=== PATIENT | female | born 1930 | race Caucasian/White ===

== ENCOUNTER 2022-06-27 13:23 | Inpatient (IN) | payer MEDICARE ==
[2022-06-24 11:14] LABS: BASOPHILS # (AUTO) 0.1 X10'3 (0-0.2); BASOPHILS % (AUTO) 0.9 % (0-1); EOSINOPHILS # (AUTO) 0.1 X10'3 (0-0.9); EOSINOPHILS % (AUTO) 1.2 % (0-6); HEMATOCRIT 32.7 % (35.0-45.0); HEMOGLOBIN 9.9 g/dl (12.0-16.0); LYMPHOCYTES # (AUTO) 1.3 X10'3 (1.1-4.8); MEAN CORPUSCULAR HEMOGLOBIN 24.3 PG (27.0-31.0); MEAN CORPUSCULAR HGB CONC 30.5 g/dL (33.0-36.5); MEAN CORPUSCULAR VOLUME 79.7 FL (78-98); MEAN PLATELET VOLUME 7.1 FL (7.4-10.4); MONOCYTES # (AUTO) 0.7 X10'3 (0-0.9); MONOCYTES % (AUTO) 7.4 % (2-12); NEUTROPHILS % (AUTO) 76.5 % (42-75); PLATELET COUNT 353 X10'3 (140-440); WHITE BLOOD COUNT 9.2 X10'3 (4.5-11.0)
[2022-06-24 11:29] LABS: ANION GAP 15 (8-16); BLOOD UREA NITROGEN 26 MG/DL (7-18); BUN/CREATININE RATIO 20.8 (10.0-20.0); CHLORIDE 105 MMOL/L (99-107); CREATININE 1.25 MG/DL (0.40-0.90); GLUCOSE 95 MG/DL (70-104); SODIUM 141 MMOL/L (135-145); TOTAL CARBON DIOXIDE 21.5 MMOL/L (24-32); eGFR 40 ML/MIN
[2022-06-24 11:35] LABS: APTT 20 SECONDS (22-32)
[2022-06-27] VITALS (16 sets, daily range): BP systolic 58–158; BP diastolic 21–64
[~2022-06-27] VITALS: Ht 162.6 cm; Wt 71.4 kg
[~2022-06-27 13:23] MED LIST: LANTUS SQ
[2022-06-27] MEDS ORDERED: LORazepam 0.5 MG tablet PO PRN (13:50)
[2022-06-27] MEDS ORDERED: diphenhydrAMINE 25mg capsule PO PRN (13:50)
[2022-06-27] MEDS ORDERED: APIX5TAB3 PO (14:11)
[2022-06-27] MEDS ORDERED: EMPA10TA PO (14:11)
[2022-06-27] MEDS ORDERED: LISI20TA28 PO (14:11)
[2022-06-27] MEDS ORDERED: CLOP75TA34 PO (14:11)
[2022-06-27] MEDS ORDERED: FURO20TA4 PO (14:11)
[2022-06-27] MEDS ORDERED: ATOR-2 PO (14:11)
[2022-06-27] MEDS ORDERED: AMIO100T4 PO (14:11)
[2022-06-27] MEDS ORDERED: METF-438 PO (14:11)
[2022-06-27] MEDS ORDERED: INSU100I8 SQ (14:11)
[2022-06-27] MEDS ORDERED: LANTUS SQ (14:11)
[2022-06-27] MEDS: normal saline 1,000 ML IV SCH (14:50)
[2022-06-27] MEDS ORDERED: iohexol 350MG/ML 100ml bottle IV ONE (16:15)
[2022-06-27] MEDS ORDERED: DOPamine 400mg/D5W 250ml 0 ML IV ONE (16:15)
[2022-06-27] MEDS ORDERED: phenylephrine 10mg/ml inj. -priapism dosing ONE (16:15)
[2022-06-27] MEDS ORDERED: LIDOcaine 1% 30ml preserv. free vial ONE (16:15)
[2022-06-27] MEDS ORDERED: atropine 0.1mg/ml 10ml syringe ONE (16:15)
[2022-06-27] MEDS ORDERED: heparin 1,000unit/ml 10ml vial 10 ML ONE (16:15)
[2022-06-27] MEDS ORDERED: clopidogrel 300mg tablet ONE (17:35)
--- NOTE | 2022-06-27 18:24 | NUR ---
Patient report given, questions answered & plan of care reviewed with KRISTOPHER Manzo, pt was transferred to room #3021 from the microbiological laboratory technician.
[2022-06-27] MEDS ORDERED: HYDROcodone/acetaminophen 10/325mg tab PO PRN (19:30)
[2022-06-27] MEDS ORDERED: acetaminophen 325mg tablet PO PRN (19:30)
[2022-06-27] MEDS ORDERED: pseudoephedrine 30mg tablet PO PRN (19:30)
[2022-06-27] MEDS ORDERED: INSULIN LISPRO 5 UNIT SQ SCH (19:30)
[2022-06-27] MEDS ORDERED: HYDROcodone/acetaminophen 5mg/325mg tablet PO PRN (19:30)
[2022-06-27] MEDS ORDERED: hydrALAZINE 20mg/ml inj. IV PRN (19:30)
[2022-06-27] MEDS: metFORMIN 500mg tablet PO SCH (20:00)
[2022-06-27] MEDS: DOPamine 400mg/D5W 250ml 250 ML IV SCH (20:01)
[2022-06-27] MEDS: apixaban 5mg tablet PO SCH (20:08)
[2022-06-27] MEDS ORDERED: insulin Lispro (HumaLOG) vial - multi-dose SQ SCH (20:10)
[2022-06-28] VITALS (8 sets, daily range): BP systolic 82–128; BP diastolic 28–73
[2022-06-28] MEDS: normal saline 1,000 ML IV SCH ×3 (00:26→19:50)
--- NOTE | 2022-06-28 06:35 | NUR ---
Problems reprioritized. Patient report given, questions answered & plan of care reviewed with Gabi SUMMERS and Suad SUMMERS.
[2022-06-28] MEDS ORDERED: furosemide 20MG tablet PO SCH (08:00)
[2022-06-28] MEDS ORDERED: amiodarone 100mg tablet PO SCH (08:00)
[2022-06-28] MEDS ORDERED: lisinopril 20mg tablet PO SCH (08:00)
[2022-06-28] MEDS: metFORMIN 500mg tablet PO SCH (08:00)
[2022-06-28] MEDS: EMPAGLIFLOZIN 10 MG TABLET PO SCH (08:00)
[2022-06-28] MEDS ORDERED: insulin glargine (Lantus) pen - multi-dose SQ SCH (08:00)
[2022-06-28] MEDS: apixaban 5mg tablet PO SCH ×2 (09:04→19:46)
[2022-06-28] MEDS: clopidogrel 75mg tablet PO SCH (09:04)
[2022-06-28] MEDS: atorvastatin 20mg tablet PO SCH (09:05)
[2022-06-28] MEDS: DOPamine 400mg/D5W 250ml 250 ML IV SCH (14:11)
--- NOTE | 2022-06-28 17:13 | NUR ---
Student documentation: I have reviewed and agree with all interventions, assessments performed and documented by Suad Vallejo RN.
--- NOTE | 2022-06-28 18:37 | NUR ---
Problems reprioritized. Patient report given, questions answered & plan of care reviewed with Jovany SUMMERS, patient stable at transfer of care.
[2022-06-28] MEDS ORDERED: sennosides/docusate sodium tablet PO SCH (21:55)
[2022-06-28] MEDS: sennosides/docusate sodium tablet PO SCH (22:39)
[2022-06-29 03:00] VITALS: BP 104/45
--- NOTE | 2022-06-29 06:15 | NUR ---
Patient in room PCU 3021. I have received report from Jovany SUMMERS and had the opportunity to ask questions and assume patient care.
--- NOTE | 2022-06-29 06:35 | NUR ---
Problems reprioritized. Patient report given, questions answered & plan of care reviewed with Dina SUMMERS and Suad SUMMERS.
[2022-06-29 07:00] VITALS: BP 100/52
[2022-06-29] MEDS: DOPamine 400mg/D5W 250ml 250 ML IV SCH (08:52)
[2022-06-29] MEDS: clopidogrel 75mg tablet PO SCH (09:28)
[2022-06-29] MEDS: sennosides/docusate sodium tablet PO SCH (09:28)
[2022-06-29] MEDS: apixaban 5mg tablet PO SCH (09:29)
[2022-06-29] MEDS: EMPAGLIFLOZIN 10 MG TABLET PO SCH (09:29)
[2022-06-29] MEDS: atorvastatin 20mg tablet PO SCH (09:29)
[2022-06-29] MEDS: normal saline 1,000 ML IV SCH (09:38)
--- NOTE | 2022-06-29 11:15 | NUR ---
Pt stable for discharge per Dr. Valentine. Blood pressures stabilized over night. All discharge instructions reviewed with patient and all questions answered, pt verbalized understanding. No new medications ordered. PIV discontinued, cannula intact. Tele discontinued. All belongings collected and sent with patient. Wheeled to lobby via nursing staff and picked up by family.
== END 2022-06-29 10:50 | disposition home or self-care (01) | DRG 35 ==
LOC: SSTAY O 13:23 → PCU 3S 17:45
PROVIDERS: ADMIT Student in an Organized Health Care Education/Training Program; ATTEND Student in an Organized Health Care Education/Training Program
PROC: B3131ZZ Fluoroscopy of Right Common Carotid Artery using Low Osmolar Contrast (ICD-10-PCS; principal; 2022-06-27)
PROC: 037K3DZ Dilation of Right Internal Carotid Artery with Intraluminal Device, Percutaneous Approach (ICD-10-PCS; 2022-06-27)
PROC: B3101ZZ Fluoroscopy of Thoracic Aorta using Low Osmolar Contrast (ICD-10-PCS; 2022-06-27)
PROC: B3161ZZ Fluoroscopy of Right Internal Carotid Artery using Low Osmolar Contrast (ICD-10-PCS; 2022-06-27)
PROC: B3191ZZ Fluoroscopy of Right External Carotid Artery using Low Osmolar Contrast (ICD-10-PCS; 2022-06-27)
PROC: B41F1ZZ Fluoroscopy of Right Lower Extremity Arteries using Low Osmolar Contrast (ICD-10-PCS; 2022-06-27)
DX: I65.21 Occlusion and stenosis of right carotid artery (principal); Z00.6 Encounter for examination for normal comparison and control in clinical research program; I42.0 Dilated cardiomyopathy; I69.351 Hemiplegia and hemiparesis following cerebral infarction affecting right dominant side; I50.22 Chronic systolic (congestive) heart failure; I48.0 Paroxysmal atrial fibrillation; I25.10 Atherosclerotic heart disease of native coronary artery without angina pectoris; E11.9 Type 2 diabetes mellitus without complications; R25.1 Tremor, unspecified; I95.9 Hypotension, unspecified; R00.1 Bradycardia, unspecified; I11.0 Hypertensive heart disease with heart failure; E78.5 Hyperlipidemia, unspecified; F03.90 Unspecified dementia, unspecified severity, without behavioral disturbance, psychotic disturbance, mood disturbance, and anxiety; I25.2 Old myocardial infarction; I69.320 Aphasia following cerebral infarction; Z79.01 Long term (current) use of anticoagulants; Z79.4 Long term (current) use of insulin; Z79.84 Long term (current) use of oral hypoglycemic drugs; Z85.038 Personal history of other malignant neoplasm of large intestine; Z79.02 Long term (current) use of antithrombotics/antiplatelets; Z79.899 Other long term (current) drug therapy; Z98.61 Coronary angioplasty status
CPT/HCPCS: 36222; 36415; 37215; 80048; 82948; 85025; 85610; 85730; 93005; A6258; C1725; C1760; C1769; C1876; C1884; C1887; C1894; G0378; J0461; J1265; J1644; J1815; J2370; J3490; J7030; Q9967

== ENCOUNTER 2022-09-12 08:23 | Emergency (ER) | payer MEDICARE ==
[~2022-09-12] VITALS: Ht 162.6 cm; Wt 68.2 kg
[~2022-09-12 08:23] MED LIST changes: +AMIO100T4 PO; +APIX5TAB3 PO; +ATOR-2 PO; +CLOP75TA34 PO; +EMPA10TA PO; +FURO20TA4 PO; +INSU100I8 SQ; +LISI20TA28 PO; +METF-438 PO
--- NOTE | 2022-09-12 09:00 | NUR ---
GAVE PT DEODARENT, TOOTH BRUSH AND TOOTH PASTE.
--- NOTE | 2022-09-12 09:18 | NUR ---
[facility] CAREGIVER CELL PHONE THIS NUMBER IS PREFERRED FOR CONTACT
[2022-09-12 09:26] LABS: BASOPHILS # (AUTO) 0.1 X10'3 (0-0.2); EOSINOPHILS # (AUTO) 0.2 X10'3 (0-0.9)
--- NOTE | 2022-09-12 09:26 | NUR ---
PER PTS SON PT IS AT HER BASELINE AT THIS TIME. PT DOES HAVE HX OF DEFICITS R/T PRIOR CVA WELL DEMENTIA AT BASELINE.
[2022-09-12 09:27] LABS: BASOPHILS % (AUTO) 0.8 % (0-1); EOSINOPHILS % (AUTO) 2.1 % (0-6); HEMATOCRIT 32.3 % (35.0-45.0); HEMOGLOBIN 10.1 g/dl (12.0-16.0); LYMPHOCYTES # (AUTO) 1.4 X10'3 (1.1-4.8); LYMPHOCYTES % (AUTO) 18.9 % (21-51); MEAN CORPUSCULAR HEMOGLOBIN 22.7 PG (27.0-31.0); MEAN CORPUSCULAR HGB CONC 31.2 g/dL (33.0-36.5); MEAN CORPUSCULAR VOLUME 72.5 FL (78-98); MEAN PLATELET VOLUME 7.3 FL (7.4-10.4); MONOCYTES # (AUTO) 0.6 X10'3 (0-0.9); MONOCYTES % (AUTO) 8.2 % (2-12); NEUTROPHILS # (AUTO) 5.4 X10'3 (1.8-7.7); PLATELET COUNT 352 X10'3 (140-440); RED BLOOD COUNT 4.45 X10'6 (4.20-5.60); WHITE BLOOD COUNT 7.6 X10'3 (4.5-11.0)
[2022-09-12 09:27] LABS: CLARITY,URINE CLEAR (Clear); COLOR,URINE STRAW (Yellow); GLUCOSE, URINE 250 mg/dl (Neg); KETONES,URINE NEGATIVE (Neg); LEUKOCYTE ESTERASE ,URINE NEGATIVE (Neg); NITRITES, URINE NEGATIVE (Neg); OCCULT BLOOD,URINE TRACE-INTACT (Neg); PH,URINE 5.5 (4.8-8.0); PROTEIN,URINE NEGATIVE (Neg); UROBILINOGEN,URINE 0.2 E.U/dL (0.2-1.0)
[2022-09-12 09:31] LABS: ALANINE AMINOTRANSFERASE 29 U/L (12-78); ALBUMIN 3.8 G/DL (3.4-5.0); ALBUMIN/GLOBULIN RATIO 1.3 (1.1-1.5); ALKALINE PHOSPHATASE 71 IU/L (46-116); ANION GAP 15 (8-16); ASPARTATE AMINO TRANSFERASE 20 U/L (10-37); BILIRUBIN,TOTAL 0.3 MG/DL (0.1-1.0); BLOOD UREA NITROGEN 25 MG/DL (7-18); BUN/CREATININE RATIO 22.7 (10.0-20.0); CALCIUM 9.4 MG/DL (8.5-10.1); CHLORIDE 108 MMOL/L (99-107); GLUCOSE 97 MG/DL (70-104); POTASSIUM 4.1 MMOL/L (3.5-5.1); SODIUM 143 MMOL/L (135-145); TOTAL CARBON DIOXIDE 19.9 MMOL/L (24-32); TOTAL PROTEIN 6.8 G/DL (6.4-8.2); eGFR 47 ML/MIN
[2022-09-12 09:34] LABS: UA COLLECTION TYPE STRAIGHT CATH
[2022-09-12 09:35] LABS: BACTERIA,URINE NONE SEEN /HPF (Neg); WBC,URINE 0-4 /HPF (0-4)
[2022-09-12 09:36] LABS: MUCUS STRANDS NONE SEEN /LPF (Neg); SQUAMOUS EPITHELIAL CELL,UR FEW /LPF (FEW)
[2022-09-12 09:50] LABS: PLATELET ESTIMATE NORMAL
[2022-09-12 09:51] LABS: ANISOCYTOSIS 3+; MICROCYTOSIS 1+
[2022-09-12 09:52] LABS: ELLIPTOCYTES 1+; HYPOCHROMASIA 1+; SCHISTOCYTES FEW
--- NOTE | 2022-09-12 10:06 | NUR ---
DR AN AT BEDSIDE TO REVIEW TEST RESULTS WITH PT AND CAREGIVER
[2022-09-12 11:19] VITALS: BP 138/60
== END 2022-09-12 11:21 | disposition home or self-care (01) ==
LOC: ER 08:23
DX: R41.82 Altered mental status, unspecified (principal); I48.91 Unspecified atrial fibrillation; E11.9 Type 2 diabetes mellitus without complications; Z88.5 Allergy status to narcotic agent
CPT/HCPCS: 36415; 70450; 71045; 80053; 81001; 83605; 84145; 85008; 85025; 87040; 93005; 99285; A4338; C1758